=== PATIENT | male | born 1960 | race Caucasian/White ===

== ENCOUNTER 2017-06-10 04:11 | Emergency (ER) | payer MEDICAID ==
[2017-06-10 04:16] VITALS: BP 141/95
--- NOTE | 2017-06-10 05:59 | EDM.PDOC ---
ED HPI GENERAL MEDICAL PROBLEM - General Chief Complaint: Respiratory Problem Stated Complaint: MEDICAL VIA [facility] Time Seen by Provider: 06/10/17 04:24 Source of Information: Reports: Patient History Limitations: Reports: No Limitations - History of Present Illness INITIAL COMMENTS - FREE TEXT/NARRATIVE: This man came in by ambulance from for nausea the history was that he was short of breath. The patient though says he's not short of breath he's just having trouble swallowing and this is been going on for some time but apparently worse tonight. He says if he eats he chokes. He's not complaining of swallowing the food and then it hanging in the esophagus nothing like that. Patient has parkinsonism and has not been on his medications for at least a month. He has a lot of grimacing lipsmacking movements that look like tardive dyskinesia or could be secondary to parkinsonism with the amount of of mouth movement I can understand why it might be difficult to swallow. There might also be some esophageal dysmotility associated with - Related Data Allergies Allergy/AdvReac Type Severity Reaction Status Date / Time No Known Allergies Allergy Verified 06/10/17 04:16 Home Meds: Home Meds risperiDONE [Risperidone] 3 mg PO DAILY 12/25/13 [History] Benztropine Mesylate 0.58 mg PO BID 09/29/14 [History] Thiamine Mononitrate [Vitamin B-1] 100 mg PO DAILY 09/29/14 [History] Divalproex Sodium [Depakote ER] 1,500 mg PO DAILY 10/07/14 [History] Vitamin B Complex [Vitamin B-100 Complex] 1 tab PO DAILY 10/07/14 [History] Cyanocobalamin (Vitamin B-12) [Vitamin B-12] 1,000 mcg PO DAILY 11/05/14 [ History] Simvastatin [Zocor] 40 mg PO DAILY 11/05/14 [History] hydrOXYzine HCl [hydrOXYzine] 25 - 50 mg PO Q6H PRN 11/05/14 [History] Divalproex Sodium [Divalproex Sodium ER] 1,000 mg PO DAILY 12/17/14 [History] Cyanocobalamin (Vitamin B12) [Vitamin B12] 1 tab PO DAILY 06/10/17 [History] Levothyroxine 112 mcg PO ACBRK 06/10/17 [History] Lurasidone [Latuda] 1 tab PO DAILY 06/10/17 [History] rOPINIRole [Requip] 0.5 mg PO TID 06/10/17 [History] Past Medical History HEENT History: Reports: Hard of Hearing Other Musculoskeletal History: crushed vertebrae Neurological History: Reports: CVA, TIA Psychiatric History: Reports: Addiction, Anxiety, Bipolar, Depression, Mood Swings, Psych Hospitalization(s), Schizophrenia Endocrine/Metabolic History: Reports: Hypothyroidism - Infectious Disease History Infectious Disease History: Reports: Chicken Pox Social & Family History - Tobacco Use Smoking Status *Q: Current Every Day Smoker Years of Tobacco use: 42 Packs/Tins Daily: 0.3 Used Tobacco, but Quit: No Second Hand Smoke Exposure: No - Caffeine Use Caffeine Use: Reports: None - Alcohol Use Days Per Week of Alcohol Use: 7 Number of Drinks Per Day: 5 Total Drinks Per Week: 35 - Recreational Drug Use Recreational Drug Use: No Drug Use in Last 12 Months: Yes Recreational Drug Type: Reports: Marijuana/Hashish Recreational Drug Use Frequency: Monthly ED ROS GENERAL - Review of Systems Review Of Systems: Unable To Obtain (Review of systems impossible to get in this patient I can barely make out the history of present illness) ED EXAM, GENERAL - Physical Exam Exam: See Below Exam Limited By: No Limitations General Appearance: Alert, Mild Distress (He has constant facial movements movements of the mouth and tongue lips various different movements it looks like part of dyskinesia), Other (He even has difficulty speaking due to the mouth movements.) Eye Exam: Bilateral Eye: Normal Inspection Throat/Mouth: Normal Oropharynx (See above), Other Head: Atraumatic Neck: Normal Inspection Respiratory/Chest: Lungs Clear Cardiovascular: Regular Rate, Rhythm GI/Abdominal: Soft, Non-Tender Extremities: Normal Inspection Neurological: Alert, No Motor/Sensory Deficits, Other (C mouth movements above) Psychiatric: Normal Affect Skin Exam: Warm, Dry Course - Vital Signs Last Recorded V/S: Last Vital Signs Temp 37.2 C 06/10/17 04:13 Pulse 81 06/10/17 04:13 Resp 18 06/10/17 04:13 BP 141/95 H 06/10/17 04:13 Pulse Ox 94 L 06/10/17 04:13 - Re-Assessments/Exams Free Text/Narrative Re-Assessment/Exam: 06/10/17 05:58 We did manage to get the patient to take 3 of his ropinirole tablets. He was able to swallow water and take the tablets without any difficulty. Free Text/Narrative Re-Assessment/Exam: 06/10/17 06:00 This patient says that he doesn't have a family doctor anywhere all of his medications were written by the psychiatrist area I offered to get him an appointment to the clinic on Sunday here but he says he doesn't have a car so he can't make it. Patient lives in [place] and should be able to see some of the providers working in [facility] Departure - Departure Time of Disposition: 06:01 Disposition: Home, Self-Care 01 Condition: Fair Clinical Impression: Swallowing difficulty - Discharge Information Referrals: PCP,None [Primary Care Provider] - Forms: ED Department Discharge Additional Instructions: Your swallowing difficulty might the related to Parkinson's disease. It might be controlled by getting back on her medications especially the ropinirole. You may also have some difficulties with the movements of your esophagus. You'll need to get a swallowing study. That's an x-ray that's made while you swallow some contrast material and it allows the doctors to see if the esophagus is working right. This is not available in the emergency department but your doctor should be able to arrange this
== END 2017-06-10 07:17 | disposition home or self-care (01) ==
LOC: JP.ED 04:11
DX: R13.10 Dysphagia, unspecified (principal); F31.9 Bipolar disorder, unspecified; E03.9 Hypothyroidism, unspecified; F17.210 Nicotine dependence, cigarettes, uncomplicated; Z79.899 Other long term (current) drug therapy
CPT/HCPCS: 99283; 99285

== ENCOUNTER 2017-06-29 07:08 | Day surgery (SDC) | payer MEDICAID ==
[~2017-06-29 07:08] MED LIST: Lactated Ringers 1,000 ML IV SCH
[2017-06-29] MEDS ORDERED: Propofol 200 MG/20 ML SDV ONE (08:21)
[2017-06-29] MEDS ORDERED: fentaNYL 100 MCG/2 ML SDV ONE (08:21)
[2017-06-29] MEDS ORDERED: Midazolam 1 MG/ML 2 ML SDV ONE (08:21)
[2017-06-29 11:51] VITALS: BP 125/81
--- NOTE | 2017-07-02 08:01 | OR ---
DATE OF PROCEDURE: 06/29/2017 PREOPERATIVE DIAGNOSES: 1. Dysphagia. 2. Blood in the stool. POSTOPERATIVE DIAGNOSES: 1. Dysphagia, etiology unknown. 2. Mild gastritis. 3. Mild duodenitis. 4. Colonic diverticulosis. 5. Blood in stool, etiology unknown. PROCEDURES: 1. Esophagogastroduodenoscopy with antral biopsies for CLOtest, sent for pathology to look for Helicobacter pylori. 2. Colonoscopy to the cecum. SURGEON: Jeffrey Arias MD. ANESTHESIA: IV anesthesia with monitored anesthesia care. INDICATION: This 56-year-old white male is referred for upper and lower endoscopy. Indication for upper endoscopy is dysphagia. He does have Parkinson's disease. Indication for colonoscopy is blood in stool. I counseled him for upper and lower endoscopy with possible biopsy and/or polypectomy including risks and alternatives, and gave his informed consent to proceed. DESCRIPTION OF PROCEDURE: The patient was placed in the left lateral decubitus position. IV anesthesia was administered by the Anesthesia Service. Time-out was held. The flexible video Olympus upper endoscope was passed through his mouth, down his esophagus, and into his stomach. The scope was easily passed through the pylorus into the duodenum reaching its third portion. The scope was slowly withdrawn, examining the mucosa throughout. The distal duodenal mucosa appeared unremarkable. The scope was brought up into the duodenal bulb, there was some erythema here consistent with mild duodenitis. The scope was brought back into the antrum through the pylorus. There was some mild inflammation here. Also we obtained antral biopsies for CLOtest, sent for pathology to look for Helicobacter pylori. The scope was retroflexed. The proximal stomach appeared unremarkable. The scope was straightened and brought up through the GE junction. This appeared unremarkable. The scope was then brought up through the unremarkable appearing esophagus and was removed. Next, a rectal exam was performed, which was unremarkable. The flexible video Olympus colonoscope was introduced through his anus, up his rectum, out his colon all the way to the cecum. En route, we saw multiple left-sided diverticula. There was no bleeding or inflammation associated with any of them. We saw no evidence of any new or old blood in the lower gastrointestinal tract. Once the cecum was reached, the scope was slowly withdrawn, examining the mucosa throughout. No additional mucosal abnormalities were noted. The scope was retroflexed in the rectum with the distal rectum showing some minor hemorrhoidal tissue. The scope was straightened and removed. He tolerated the procedure well. Jeffrey Arias MD /[id number]
== END 2017-06-29 11:40 | disposition home or self-care (01) ==
LOC: JP.SDS 07:08
PROVIDERS: ATTEND Surgery
DX: K92.1 Melena (principal); R13.10 Dysphagia, unspecified; K29.70 Gastritis, unspecified, without bleeding; K29.80 Duodenitis without bleeding; K57.30 Diverticulosis of large intestine without perforation or abscess without bleeding; K64.9 Unspecified hemorrhoids; F31.9 Bipolar disorder, unspecified; F10.20 Alcohol dependence, uncomplicated; G20 Parkinson's disease
CPT/HCPCS: 87081; 88305; J2250; J2704; J3010; J7120

== ENCOUNTER 2021-10-03 22:53 | Emergency (ER) | payer MEDICAID ==
[2021-10-03 23:36] VITALS: BP 124/84; PULSE 92
[2021-10-04 01:10] LABS: ESTIMATED GFR > 60 (>60)
== END 2021-10-04 12:14 | disposition home or self-care (01) ==
LOC: JP.ED 22:53
DX: F25.9 Schizoaffective disorder, unspecified (principal); F39 Unspecified mood [affective] disorder; D64.9 Anemia, unspecified; F10.10 Alcohol abuse, uncomplicated; E03.9 Hypothyroidism, unspecified; Z88.0 Allergy status to penicillin; Z79.899 Other long term (current) drug therapy; Z86.73 Personal history of transient ischemic attack (TIA), and cerebral infarction without residual deficits; Y90.3 Blood alcohol level of 60-79 mg/100 ml
CPT/HCPCS: 36415; 80048; 80143; 80179; 80307; 85025; 99284